=== PATIENT | male | born 1970 | race Caucasian/White ===

== ENCOUNTER 2020-02-24 12:10 | Inpatient (IN) | payer OTHER ==
--- NOTE | 2020-02-24 12:18 | BHS.RME ---
Substance Use & Tx History - Substance Use History Alcohol Substance amount: 1 pint vodka Frequency of use: Daily Substance route: Oral Date of Last Use: 02/24/20 Marijuana/Hashish Substance amount: $10-15 Frequency of use: Daily Substance route: Smoking Date of Last Use: 02/24/20 Nicotine Substance amount: 2 ciggs Frequency of use: Daily Substance route: Smoking Date of Last Use: 02/24/20 - Last Treatment Date of last treatment: 2013 Treatment type: Substance Use Disorder (MILO) Where was last treatment: Detox Physical/Psych/Mental Status - Behavior General Behavior: Increased activity (restlessness, agitation) Eye Contact: Normal - Cooperativeness Cooperativeness: Cooperative - Thinking Thought Processes: Tight, Logical, Goal Directed - Physical Health Problems Is patient presently having any pain?: No Does patient presently have any injuries (include location): No Does patient currently have a fever: No Is patient : No CIWA Nausea/Vomitin-No Nausea/No Vomiting Muscle Tremors: 2 Anxiety: 3 Agitation: 3 Paroxysmal Sweats: 3 Orientation: 0-Oriented Tacttile Disturbances: 1-Very Mild Itch/Numbness Auditory Disturbances: 0-None Visual Disturbances: 0-None Headache: 0-None Present CIWA-Ar Total Score: 12
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
[2020-02-24] MEDS ORDERED: MAGNESIUM CITRATE 300 ML BOTTLE PO PRN (12:58)
[2020-02-24] MEDS ORDERED: IBUPROFEN 400 MG TABLET (FP) PO PRN (12:58)
[2020-02-24] MEDS ORDERED: NICOTINE POLACRILEX 2 MG GUM BUC PRN (12:58)
[2020-02-24] MEDS ORDERED: ONDANSETRON *ODT* 4 MG TABLET SL PRN (12:58)
[2020-02-24] MEDS ORDERED: BISMUTH SUBSALICYLATE 262 MG/15 ML BTL PO PRN (12:58)
[2020-02-24] MEDS ORDERED: MAGNESIUM HYDROX 2400MG/30ML ORAL SUSPENSION 30 ML CUP PO PRN (12:58)
[2020-02-24] MEDS ORDERED: chlordiazePOXIDE HCL 25 MG CAPSULE PO PRN (12:58)
[2020-02-24] MEDS ORDERED: ACETAMINOPHEN 325 MG TABLET (FP) PO PRN ×2 (12:58)
[2020-02-24] MEDS ORDERED: METHOCARBAMOL 500 MG TABLET PO PRN (12:58)
[2020-02-24] MEDS ORDERED: MAG HYDROX/AL HYDROX/SIMETH 30 ML UNIT-DOSE CUP PO PRN (12:58)
[2020-02-24] MEDS ORDERED: MENTHOL/PHENOL 1 EACH UD MM PRN (12:58)
[2020-02-24 15:00] VITALS: BMI 21.1
--- NOTE | 2020-02-24 15:12 | EKG ---
Test Reason : Blood Pressure : / mmHG Vent. Rate : 039 BPM Atrial Rate : 039 BPM P-R Int : 136 ms QRS Dur : 102 ms QT Int : 536 ms P-R-T Axes : 010 062 039 degrees QTc Int : 431 ms MARKED SINUS BRADYCARDIA ABNORMAL ECG NO PREVIOUS ECGS AVAILABLE Confirmed by MD TRACEY, MUSA ([id number]) on 02/24/2020 3:12:12 PM Referred By: Confirmed By:MUSA WEBB MD
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
[2020-02-24] MEDS: hydrOXYzine PAMOATE 25 MG CAPSULE (FP) PO SCH ×3 (15:50→22:21)
[2020-02-24 17:13] LABS: MCH 29.6 pg (25.7-33.7); MCHC 33.3 g/dl (32.0-35.9); MEAN CELL VOLUME 88.8 fl (80-96); PLATELET COUNT 200 K/MM3 (134-434); RBC 4.39 M/mm3 (4.00-5.60); RDW 13.6 % (11.9-15.9); WHITE BLOOD COUNT 6.5 K/mm3 (4.0-10.0)
[2020-02-24 17:19] LABS: ALBUMIN 3.9 g/dl (3.4-5.0); BILIRUBIN,TOTAL 0.8 mg/dL (0.2-1); BLOOD UREA NITROGEN 15.2 mg/dL (7-18); CALCIUM 8.9 mg/dL (8.5-10.1); CREATININE 0.9 mg/dL (0.55-1.3); POTASSIUM 3.9 mmol/L (3.5-5.1); TOT PROT 7.4 g/dl (6.4-8.2)
[2020-02-24] MEDS: chlordiazePOXIDE HCL 25 MG CAPSULE PO SCH ×2 (17:30→22:21)
[2020-02-24] MEDS: MELATONIN 5 MG TABLETS PO SCH (22:21)
[2020-02-24] MEDS: THIAMINE HCL 100 MG TABLET (FP) PO SCH (22:21)
[2020-02-25] MEDS: chlordiazePOXIDE HCL 25 MG CAPSULE PO SCH ×4 (07:34→22:07)
[2020-02-25] MEDS: hydrOXYzine PAMOATE 25 MG CAPSULE (FP) PO SCH ×5 (07:34→22:08)
[2020-02-25] MEDS ORDERED: METHADONE HCL 10 MG TABLET PO ONE (10:00)
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
[2020-02-25] MEDS: PRENATAL VITAMINS W/ FOLIC ACID TABLET (FP) PO SCH (10:14)
[2020-02-25] MEDS: NICOTINE 7 MG/24 HOURS TOPICAL PATCH TD SCH (10:14)
--- NOTE | 2020-02-25 10:35 | PN ---
S CIWA - CIWA Score Nausea/Vomitin Muscle Tremors: 3 Anxiety: 3 Agitation: 2 Paroxysmal Sweats: No Perspiration Orientation: 0-Oriented Tacttile Disturbances: 1-Very Mild Itch/Numbness Auditory Disturbances: 0-None Visual Disturbances: 0-None Headache: 2-Mild CIWA-Ar Total Score: 13 S Progress Note (SOAP) Subjective: alert,irritable,anxious,interrupted sleep,tremor,pain in the body and back,nausea Objective: 02/25/20 10:33 Vital Signs Temperature 97.3 F L 02/25/20 08:56 Pulse Rate 72 02/25/20 08:56 Respiratory Rate 16 02/25/20 08:56 Blood Pressure 110/74 02/25/20 08:56 O2 Sat by Pulse Oximetry (%) 100 02/25/20 06:26 Laboratory Last Values WBC 6.5 K/mm3 (4.0-10.0) 02/24/20 13:15 RBC 4.39 M/mm3 (4.00-5.60) 02/24/20 13:15 Hgb 13.0 GM/dL (11.7-16.9) 02/24/20 13:15 Hct 39.0 % (35.4-49) 02/24/20 13:15 MCV 88.8 fl (80-96) 02/24/20 13:15 MCH 29.6 pg (25.7-33.7) 02/24/20 13:15 MCHC 33.3 g/dl (32.0-35.9) 02/24/20 13:15 RDW 13.6 % (11.9-15.9) 02/24/20 13:15 Plt Count 200 K/MM3 (134-434) 02/24/20 13:15 MPV 9.0 fl (7.5-11.1) 02/24/20 13:15 Sodium 138 mmol/L (136-145) 02/24/20 13:15 Potassium 3.9 mmol/L (3.5-5.1) 02/24/20 13:15 Chloride 102 mmol/L (98-107) 02/24/20 13:15 Carbon Dioxide 29 mmol/L (21-32) 02/24/20 13:15 Anion Gap 7 MMOL/L (8-16) L 02/24/20 13:15 BUN 15.2 mg/dL (7-18) 02/24/20 13:15 Creatinine 0.9 mg/dL (0.55-1.3) 02/24/20 13:15 Est GFR (CKD-EPI)AfAm 115.02 02/24/20 13:15 Est GFR (CKD-EPI)NonAf 99.24 02/24/20 13:15 Random Glucose 91 mg/dL (74-106) 02/24/20 13:15 Calcium 8.9 mg/dL (8.5-10.1) 02/24/20 13:15 Total Bilirubin 0.8 mg/dL (0.2-1) 02/24/20 13:15 AST 45 U/L (15-37) H 02/24/20 13:15 ALT 72 U/L (13-61) H 02/24/20 13:15 Alkaline Phosphatase 85 U/L (45-117) 02/24/20 13:15 Total Protein 7.4 g/dl (6.4-8.2) 02/24/20 13:15 Albumin 3.9 g/dl (3.4-5.0) 02/24/20 13:15 Syphilis Serology Non-reactive (NONREACTIVE) 02/24/20 13:15 Assessment: 02/25/20 10:33 withdrawal symptom Plan: continue detox librium rgimen,methadone maintenance 30 mgs daily
[2020-02-25] MEDS: METHYL SALICYLATE/MENTHOL OINT 30 GM TUBE TP SCH ×2 (14:58→22:08)
[2020-02-25] MEDS: THIAMINE HCL 100 MG TABLET (FP) PO SCH (22:07)
[2020-02-25] MEDS: MELATONIN 5 MG TABLETS PO SCH (22:07)
[2020-02-25] MEDS: QUEtiapine FUMARATE 50 MG TABLET PO SCH (22:07)
[2020-02-26] MEDS: METHADONE HCL 10 MG TABLET PO SCH (06:22)
[2020-02-26] MEDS: chlordiazePOXIDE HCL 25 MG CAPSULE PO SCH ×2 (06:23→10:16)
[2020-02-26] MEDS: hydrOXYzine PAMOATE 25 MG CAPSULE (FP) PO SCH ×5 (06:23→22:29)
--- NOTE | 2020-02-26 10:14 | PN ---
S CIWA - CIWA Score Nausea/Vomitin-Mild Nausea/No Vomiting Muscle Tremors: 2 Anxiety: 2 Agitation: 2 Paroxysmal Sweats: No Perspiration Orientation: 0-Oriented Tacttile Disturbances: 1-Very Mild Itch/Numbness Auditory Disturbances: 0-None Visual Disturbances: 0-None Headache: 1-Very Mild CIWA-Ar Total Score: 9 BHS Progress Note (SOAP) Subjective: alert,irritable,anxious,interrupted sleep,tremor,low back pain,aching pain in the body Objective: 02/26/20 10:13 Vital Signs Temperature 97.3 F L 02/26/20 08:42 Pulse Rate 53 L 02/26/20 08:42 Respiratory Rate 18 02/26/20 08:42 Blood Pressure 104/59 L 02/26/20 08:42 O2 Sat by Pulse Oximetry (%) 97 02/26/20 06:26 Assessment: 02/26/20 10:13 withdrawal symptom Plan: continue detox librium regimen,continue mmtp 30 mgs/day maintenance
[2020-02-26] MEDS: METHYL SALICYLATE/MENTHOL OINT 30 GM TUBE TP SCH ×2 (10:16→22:28)
[2020-02-26] MEDS: NICOTINE 7 MG/24 HOURS TOPICAL PATCH TD SCH (10:16)
[2020-02-26] MEDS: PRENATAL VITAMINS W/ FOLIC ACID TABLET (FP) PO SCH (10:16)
[2020-02-26] MEDS ORDERED: LORazepam 1 MG TABLET PO PRN (14:05)
--- NOTE | 2020-02-26 14:10 | PN ---
BHS Progress Note Note: patient would like regimen to be changed from librium to ativan
[2020-02-26] MEDS: LORazepam 2 MG TABLET PO SCH ×2 (17:17→22:27)
[2020-02-26] MEDS: THIAMINE HCL 100 MG TABLET (FP) PO SCH (22:27)
[2020-02-26] MEDS: QUEtiapine FUMARATE 50 MG TABLET PO SCH (22:27)
[2020-02-26] MEDS: MELATONIN 5 MG TABLETS PO SCH (22:28)
[2020-02-27] MEDS ORDERED: chlordiazePOXIDE HCL 10 MG CAPSULE PO PRN
[2020-02-27] MEDS ORDERED: chlordiazePOXIDE HCL 10 MG CAPSULE PO SCH (05:00)
--- NOTE | 2020-02-27 07:43 | PN ---
[facility] Progress Note Note: Patient is very confused as per the nurse, he was walking around the unit in his underwear andbwas going into other patient's room looking for washing machine because he had to get to work. Vital Signs Temperature 97.3 F L 02/27/20 06:49 Pulse Rate 62 02/27/20 06:49 Respiratory Rate 18 02/27/20 06:49 Blood Pressure 101/57 L 02/27/20 06:49 O2 Sat by Pulse Oximetry (%) 98 02/27/20 06:49 Laboratory Last Values WBC 6.5 K/mm3 (4.0-10.0) 02/24/20 13:15 RBC 4.39 M/mm3 (4.00-5.60) 02/24/20 13:15 Hgb 13.0 GM/dL (11.7-16.9) 02/24/20 13:15 Hct 39.0 % (35.4-49) 02/24/20 13:15 MCV 88.8 fl (80-96) 02/24/20 13:15 MCH 29.6 pg (25.7-33.7) 02/24/20 13:15 MCHC 33.3 g/dl (32.0-35.9) 02/24/20 13:15 RDW 13.6 % (11.9-15.9) 02/24/20 13:15 Plt Count 200 K/MM3 (134-434) 02/24/20 13:15 MPV 9.0 fl (7.5-11.1) 02/24/20 13:15 Sodium 138 mmol/L (136-145) 02/24/20 13:15 Potassium 3.9 mmol/L (3.5-5.1) 02/24/20 13:15 Chloride 102 mmol/L (98-107) 02/24/20 13:15 Carbon Dioxide 29 mmol/L (21-32) 02/24/20 13:15 Anion Gap 7 MMOL/L (8-16) L 02/24/20 13:15 BUN 15.2 mg/dL (7-18) 02/24/20 13:15 Creatinine 0.9 mg/dL (0.55-1.3) 02/24/20 13:15 Est GFR (CKD-EPI)AfAm 115.02 02/24/20 13:15 Est GFR (CKD-EPI)NonAf 99.24 02/24/20 13:15 Random Glucose 91 mg/dL (74-106) 02/24/20 13:15 Calcium 8.9 mg/dL (8.5-10.1) 02/24/20 13:15 Total Bilirubin 0.8 mg/dL (0.2-1) 02/24/20 13:15 AST 45 U/L (15-37) H 02/24/20 13:15 ALT 72 U/L (13-61) H 02/24/20 13:15 Alkaline Phosphatase 85 U/L (45-117) 02/24/20 13:15 Total Protein 7.4 g/dl (6.4-8.2) 02/24/20 13:15 Albumin 3.9 g/dl (3.4-5.0) 02/24/20 13:15 Syphilis Serology Non-reactive (NONREACTIVE) 02/24/20 13:15 COVID-19 (NAYE) Not detected (Not Detected) 02/24/20 15:30 Action: Maintain safety and fall precaution Ammonia level ordered
[2020-02-27] MEDS: METHADONE HCL 10 MG TABLET PO SCH (07:56)
[2020-02-27] MEDS: hydrOXYzine PAMOATE 25 MG CAPSULE (FP) PO SCH ×4 (07:57→17:17)
[2020-02-27] MEDS: LORazepam 2 MG TABLET PO SCH ×3 (07:57→17:16)
[2020-02-27 09:14] VITALS: TEMP 97.1
[2020-02-27] MEDS: NICOTINE 7 MG/24 HOURS TOPICAL PATCH TD SCH (11:12)
[2020-02-27] MEDS: METHYL SALICYLATE/MENTHOL OINT 30 GM TUBE TP SCH (11:12)
[2020-02-27] MEDS: PRENATAL VITAMINS W/ FOLIC ACID TABLET (FP) PO SCH (11:12)
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
--- NOTE | 2020-02-27 18:54 | PN ---
[facility] Progress Note Note: patient is medically clear to return to [facility] for continuation of detox alert,oriented x 3 lung clear bilaterally on auscultation abdomen soft,no distension,no pain,no tenderness, ammonia level is 39.70 ambulation without difficulty treatment continue detox ativan regimen close monitoring repeat ammonia level in am
[2020-02-27 19:36] VITALS: BP 137/73; PULSE 53
--- NOTE | 2020-02-27 20:50 | DS ---
[facility] Detox Discharge Summary Admission Date: 02/24/20 Discharge Date: 02/27/20 - History Additional Comments: Patient is leaving against medical advice. Patient was transferred to [facility] ER for altered mental status and high ammonium level. He was hydrated and treated with lactulose and rifaximin. He was to continue Rifaximin 550mg two times a day for up to 5 days and stop when your ammonia level normalizes. Patient reports that he feels better and does not want to continue with detox. He is alert and oriented x 3, in no acute distress, ambulates independently and vital sign within his usual norm. Patient signed the AMA and left. He does not remember his pharmacy and states that he does not fill his prescription at [facility] anymore. He was instructed to follow up with primary care physician to continue with rifaximin and he reports that his family will pick him up. Pertinent Past History: Alcohol dependence Opioid dependence Sedative dependence Altered mental status Head injury Mood disorder Methadone maintenance therapy patient - Physical Exam Results Vital Signs: Vital Signs Temperature 97.1 F L 02/27/20 19:27 Pulse Rate 53 L 02/27/20 19:27 Respiratory Rate 18 02/27/20 19:27 Blood Pressure 137/73 02/27/20 19:27 O2 Sat by Pulse Oximetry (%) 100 02/27/20 19:27 Laboratory Last Values WBC 6.5 K/mm3 (4.0-10.0) 02/24/20 13:15 RBC 4.39 M/mm3 (4.00-5.60) 02/24/20 13:15 Hgb 13.0 GM/dL (11.7-16.9) 02/24/20 13:15 Hct 39.0 % (35.4-49) 02/24/20 13:15 MCV 88.8 fl (80-96) 02/24/20 13:15 MCH 29.6 pg (25.7-33.7) 02/24/20 13:15 MCHC 33.3 g/dl (32.0-35.9) 02/24/20 13:15 RDW 13.6 % (11.9-15.9) 02/24/20 13:15 Plt Count 200 K/MM3 (134-434) 02/24/20 13:15 MPV 9.0 fl (7.5-11.1) 02/24/20 13:15 Sodium 138 mmol/L (136-145) 02/24/20 13:15 Potassium 3.9 mmol/L (3.5-5.1) 02/24/20 13:15 Chloride 102 mmol/L (98-107) 02/24/20 13:15 Carbon Dioxide 29 mmol/L (21-32) 02/24/20 13:15 Anion Gap 7 MMOL/L (8-16) L 02/24/20 13:15 BUN 15.2 mg/dL (7-18) 02/24/20 13:15 Creatinine 0.9 mg/dL (0.55-1.3) 02/24/20 13:15 Est GFR (CKD-EPI)AfAm 115.02 02/24/20 13:15 Est GFR (CKD-EPI)NonAf 99.24 02/24/20 13:15 Random Glucose 91 mg/dL (74-106) 02/24/20 13:15 Calcium 8.9 mg/dL (8.5-10.1) 02/24/20 13:15 Total Bilirubin 0.8 mg/dL (0.2-1) 02/24/20 13:15 AST 45 U/L (15-37) H 02/24/20 13:15 ALT 72 U/L (13-61) H 02/24/20 13:15 Alkaline Phosphatase 85 U/L (45-117) 02/24/20 13:15 Ammonia 101.00 umol/L (11-32) H 02/27/20 08:10 Total Protein 7.4 g/dl (6.4-8.2) 02/24/20 13:15 Albumin 3.9 g/dl (3.4-5.0) 02/24/20 13:15 Syphilis Serology Non-reactive (NONREACTIVE) 02/24/20 13:15 COVID-19 (NAYE) Not detected (Not Detected) 02/24/20 15:30 Labs reviewed with patient Pertinent Admission Physical Exam Findings: Alcohol withdrawal symptoms - Medication Discharge Medications: Ambulatory Orders Sertraline HCl [Zoloft -] 100 mg PO DAILY 02/24/20 - Diagnosis (1) Cannabis dependence Status: Chronic (2) Sedative dependence Status: Chronic (3) hepatitis b Status: Chronic (4) AMS (altered mental status) Status: Chronic Qualifiers: Altered mental status type: unspecified Qualified Code(s): R41.82 - Altered mental status, unspecified (5) Alcohol dependence Status: Chronic (6) Head injury Status: Chronic (7) Hyperammonemia Status: Chronic (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
[2020-02-28] MEDS ORDERED: LORazepam 1 MG TABLET PO SCH (05:00)
[2020-02-28] MEDS ORDERED: chlordiazePOXIDE HCL 10 MG CAPSULE PO SCH (05:00)
[2020-02-29] MEDS ORDERED: LORazepam 0.5 MG TABLET PO PRN
[2020-02-29] MEDS ORDERED: chlordiazePOXIDE HCL 10 MG CAPSULE PO ONE (05:00)
[2020-02-29] MEDS ORDERED: LORazepam 0.5 MG TABLET PO SCH (05:00)
[2020-03-01] MEDS ORDERED: LORazepam 0.5 MG TABLET PO ONE (05:00)
== END 2020-02-27 20:50 | disposition left against medical advice (07) | DRG 770 ==
LOC: YASAS 12:10 → Y3N 14:29
PROVIDERS: ADMIT Allergy & Immunology; ATTEND Allergy & Immunology
PROC: HZ2ZZZZ Detoxification Services for Substance Abuse Treatment (ICD-10-PCS; principal; 2020-02-24)
DX: F10.230 Alcohol dependence with withdrawal, uncomplicated (principal); F11.20 Opioid dependence, uncomplicated; F12.20 Cannabis dependence, uncomplicated; F17.210 Nicotine dependence, cigarettes, uncomplicated; F39 Unspecified mood [affective] disorder; E72.20 Disorder of urea cycle metabolism, unspecified; R41.82 Altered mental status, unspecified; B18.1 Chronic viral hepatitis B without delta-agent; Z91.013 Allergy to seafood; Z91.018 Allergy to other foods; Z91.5 Personal history of self-harm
CPT/HCPCS: 36415; 80053; 82140; 85027; 86780; 93005; 93010; U0003

== ENCOUNTER 2020-02-27 14:47 | Emergency (ER) | payer OTHER ==
[2020-02-27 15:12] VITALS: BMI 23.3
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
[2020-02-27] MEDS ORDERED: LACTULOSE 20 GM/30 ML UDC (FOR ORAL USE ONLY) PO ONE (16:02)
[2020-02-27] MEDS ORDERED: SODIUM CHLORIDE 0.9% 500 ML INFUS.BAG IV ONE (16:02)
[2020-02-27] MEDS ORDERED: RIFAXIMIN 550 MG TABLET (UD) PO ONE (16:04)
[2020-02-27 16:13] LABS: BASO % 0.4 % (0-2.0); EOS % 7.1 % (0-4.5); HEMATOCRIT 40.9 % (35.4-49); HEMOGLOBIN 13.6 GM/dL (11.7-16.9); LYMPH % 31.2 % (8-40); MCH 29.4 pg (25.7-33.7); MCHC 33.2 g/dl (32.0-35.9); MEAN CELL VOLUME 88.5 fl (80-96); MEAN PLT VOLUME 8.5 fl (7.5-11.1); MONO % 11.1 % (3.8-10.2); NEUT % 50.2 % (42.8-82.8); PLATELET COUNT 179 K/MM3 (134-434); RBC 4.63 M/mm3 (4.00-5.60); RDW 13.7 % (11.9-15.9)
[2020-02-27] MEDS ORDERED: LACTULOSE 20 GM/30 ML UDC (FOR ORAL USE ONLY) ONE (16:19)
[2020-02-27 16:26] LABS: INR 0.96 (0.83-1.09); PROTHROMBIN TIME (PATIENT) 11.3 SEC (9.7-13.0)
[2020-02-27 16:28] LABS: ACTIVATED PTT 34.6 SECONDS (25.2-36.5)
[2020-02-27 16:39] LABS: ALBUMIN 3.2 g/dl (3.4-5.0); ALK PHOS 97 U/L (45-117); ANION GAP 2 MMOL/L (8-16); BILIRUBIN,TOTAL 0.2 mg/dL (0.2-1); BLOOD UREA NITROGEN 12.2 mg/dL (7-18); CALCIUM 9.1 mg/dL (8.5-10.1); CHLORIDE 106 mmol/L (98-107); CO2 32 mmol/L (21-32); CREATININE 0.8 mg/dL (0.55-1.3); GLUCOSE,RANDOM 94 mg/dL (74-106); LIPASE 73 U/L (73-393); MAGNESIUM 2.2 mg/dL (1.8-2.4); PHOSPHOROUS 2.9 mg/dL (2.5-4.9); POTASSIUM 4.1 mmol/L (3.5-5.1); SGOT/AST 67 U/L (15-37); SGPT/ALT 95 U/L (13-61); SODIUM 141 mmol/L (136-145); TOT PROT 6.6 g/dl (6.4-8.2)
--- NOTE | 2020-02-27 17:34 | PDOC ---
Documentation entered by Malu Mejia SCRIBE, acting as scribe for Anil Medley MD. Anil Medley MD: This documentation has been prepared by the Jackie berry Brenda, SCRIBE, under my direction and personally reviewed by me in its entirety. I confirm that the documentation accurately reflects all work, treatment, procedures, and medical decision making performed by me. Attending Attestation - Resident Resident Name: Daphnie Green - ED Attending Attestation I have performed the following: I have examined & evaluated the patient, The case was reviewed & discussed with the resident, I agree w/resident's findings & plan, Exceptions are as noted - HPI HPI: 02/27/20 15:39 The patient is a 49 year old male with a significant PMH of alcohol abuse and hepatitis B who presents to the emergency department BIBA sent from [facility] for evaluation of elevated ammonium at 101 and altered mental status. Patient endorses shortness of breath, noting he can't walk more than 2 minutes without stopping and left sided chest pressure upon exertion. He's also endorsing a recent fall s/p head injury complaining of headache. Patient also reports nausea with associated intermittent abdominal pain. The patient denies and dizziness. Denies fever, chills, vomiting, diarrhea and constipation. Denies dysuria, frequency, urgency and hematuria. Social history: alcohol use and illicit drug use PCP: Bhaskar Prajapati - Physicial Exam PE: 02/27/20 15:44 Vitals: Triage Vital signs reviewed General Appearance: no acute distress, well nourished well developed, Neck: Supple;No Nuchal rigidity Chest Wall: Nontender Cardiac: Regular rate and rhythm, no murmurs, no rubs, no gallops, Lungs: Clear to auscultation bilateral, good air movement bilaterally, Abdomen: Soft, nondistended, normal bowel sounds, nontender to palpation Extremities: Full range of motion to all extremities, no cyanosis, clubbing, or edema Skin: Warm and dry, no rashes or lesions, no petechiae Neuro: AOX3; Cranial Nerves 2-12 grossly intact, Strength intact to all extremities, Sensation intact to all extremities Psych: normal mood, normal affect - Medical Decision Making 02/27/20 18:01 49 years old with past medical history significant for alcohol abuse hepatitis sent from [facility] for elevated ammonia altered mental status repeat ammonia now 39 patient mentating much better was given lactulose and rifaxamin in the ED labs and head CT otherwise within normal limits at this time patient able to ambulate with steady gait Given marked improvement over just a few hours Case discussed with [facility] stable for transfer back will recommend additional 2-day course of lactulose and rifaxamin Findings, need for follow-up and strict return instructions discussed with patient. 02/27/20 18:02 03/01/20 11:05 Discharge - Discharge Information Problems reviewed: Yes Clinical Impression/Diagnosis: Hyperammonemia AMS (altered mental status) Qualifiers: Altered mental status type: unspecified Qualified Code(s): R41.82 - Altered mental status, unspecified Condition: Improved Disposition: HOME - Follow up/Referral Referrals: Bhaskar Prajapati [Primary Care Provider] - - Patient Discharge Instructions Patient Printed Discharge Instructions: DI for Hepatic Encephalopathy Additional Instructions: You have been seen for your confusion and high ammonium. Your ammonium level was lower here and we gave you the initial treatments of lactulose, rifaximin, and fluids. Your confusion improved and you are safe to go home. Take Rifaximin 550mg two times a day for up to 5 days, stop when your ammonia level normalizes. Follow up with your primary care doctor within 3 days. Follow your program recommendations. Return to the Emergency Department immediately for any new or concerning symptoms including confusion, vomiting, abdominal pain, or fever. - Post Discharge Activity
[2020-02-27 18:16] VITALS: BP 125/63; PULSE 54; TEMP 97.4
--- NOTE | 2020-02-29 10:07 | EKG ---
Test Reason : Blood Pressure : / mmHG Vent. Rate : 049 BPM Atrial Rate : 049 BPM P-R Int : 130 ms QRS Dur : 098 ms QT Int : 434 ms P-R-T Axes : 012 006 007 degrees QTc Int : 392 ms SINUS BRADYCARDIA Nonspecific T changes OTHERWISE NORMAL ECG WHEN COMPARED WITH ECG OF 24-FEB-2020 12:56, INVERTED T WAVES HAVE REPLACED NONSPECIFIC T WAVE ABNORMALITY IN INFERIOR LEADS T WAVE AMPLITUDE HAS DECREASED IN ANTERIOR LEADS Confirmed by Trudy Michelle ([id number]) on 02/29/2020 10:07:34 AM Referred By: Confirmed By:Trudy Michelle
[2020-02-29 19:06] LABS: HEP B CORE AB, TOT Positive (Negative)
== END 2020-02-27 18:36 | disposition home or self-care (01) ==
LOC: JER 14:47
DX: E72.20 Disorder of urea cycle metabolism, unspecified (principal); R41.82 Altered mental status, unspecified
CPT/HCPCS: 36415; 70450-TC; 71045-TC-FY; 80053; 82140; 82550; 82553; 82962; 83690; 83735; 84100; 84484; 85025; 85610; 85730; 86704; 86706; 86707; 86708; 86709; 86850; 86900; 86901; 87340; 93005; 93010; 99285-25

== ENCOUNTER 2021-05-29 10:20 | Inpatient (IN) | payer OTHER ==
[2021-05-29 11:10] VITALS: BMI 21.6
[2021-05-29] MEDS ORDERED: IBUPROFEN 400 MG TABLET (FP) PO PRN (13:04)
[2021-05-29] MEDS ORDERED: METHOCARBAMOL 500 MG TABLET PO PRN (13:04)
[2021-05-29] MEDS ORDERED: MAG HYDROX/AL HYDROX/SIMETH 30 ML UNIT-DOSE CUP PO PRN (13:04)
[2021-05-29] MEDS ORDERED: ONDANSETRON *ODT* 4 MG TABLET SL PRN (13:04)
[2021-05-29] MEDS ORDERED: NICOTINE 10 MG CARTRIDGE (INHALER) IH PRN (13:04)
[2021-05-29] MEDS ORDERED: MENTHOL/PHENOL 1 EACH UD MM PRN (13:04)
[2021-05-29] MEDS ORDERED: MAGNESIUM HYDROX 2400MG/30ML ORAL SUSPENSION 30 ML CUP PO PRN (13:04)
[2021-05-29] MEDS ORDERED: ACETAMINOPHEN 325 MG TABLET (FP) PO PRN ×2 (13:04)
[2021-05-29] MEDS ORDERED: BISMUTH SUBSALICYLATE 524 MG/30 ML PO PRN (13:04)
[2021-05-29] MEDS ORDERED: MAGNESIUM CITRATE 300 ML BOTTLE PO PRN (13:04)
[2021-05-29] MEDS: NICOTINE 14 MG/24 HOURS TOPICAL PATCH TD SCH (14:46)
[2021-05-29] MEDS: hydrOXYzine PAMOATE 25 MG CAPSULE (FP) PO SCH ×3 (14:46→21:53)
[2021-05-29] MEDS: PRENATAL VITAMINS W/ FOLIC ACID TABLET (FP) PO SCH (14:46)
[2021-05-29 15:02] LABS: HEMATOCRIT 40.4 % (35.4-49); HEMOGLOBIN 13.9 GM/dL (11.7-16.9); MCH 29.8 pg (25.7-33.7); MCHC 34.3 g/dl (32.0-35.9); MEAN CELL VOLUME 86.8 fl (80-96); MEAN PLT VOLUME 8.1 fl (7.5-11.1); PLATELET COUNT 187 10^3/uL (134-434); RBC 4.66 M/mm3 (4.00-5.60); RDW 13.4 % (11.9-15.9); WHITE BLOOD COUNT 6.2 K/mm3 (4.0-10.0)
[2021-05-29 15:35] LABS: CREATININE 0.8 mg/dL (0.55-1.3)
[2021-05-29 15:36] LABS: BILIRUBIN,TOTAL 0.3 mg/dL (0.2-1)
[2021-05-29 15:37] LABS: BLOOD UREA NITROGEN 14.3 mg/dL (7-18); TOT PROT 7.3 g/dl (6.4-8.2)
[2021-05-29 15:38] LABS: ALBUMIN 3.7 g/dl (3.4-5.0)
[2021-05-29 15:39] LABS: CALCIUM 8.7 mg/dL (8.5-10.1)
[2021-05-29] MEDS: diazePAM 5 MG TABLET PO SCH ×2 (17:42→22:11)
[2021-05-29] MEDS: MELATONIN 5 MG TABLETS PO SCH (21:53)
[2021-05-29] MEDS: THIAMINE HCL 100 MG TABLET (FP) PO SCH (21:53)
[2021-05-30] MEDS: diazePAM 5 MG TABLET PO SCH ×4 (05:30→22:26)
[2021-05-30] MEDS: hydrOXYzine PAMOATE 25 MG CAPSULE (FP) PO SCH ×5 (05:30→22:26)
[2021-05-30] MEDS: PRENATAL VITAMINS W/ FOLIC ACID TABLET (FP) PO SCH (10:08)
[2021-05-30] MEDS: NICOTINE 14 MG/24 HOURS TOPICAL PATCH TD SCH (10:08)
[2021-05-30] MEDS ORDERED: methaDONE HCL 10 MG TABLET PO SCH (11:30)
[2021-05-30] MEDS ORDERED: methaDONE HCL 40 MG DISPERSABLE TABLET ONE (12:57)
[2021-05-30] MEDS ORDERED: methaDONE HCL 10 MG TABLET ONE (12:57)
[2021-05-30] MEDS: methaDONE 40 MG, methaDONE 20 MG PO SCH (13:01)
[2021-05-30] MEDS: THIAMINE HCL 100 MG TABLET (FP) PO SCH (22:26)
[2021-05-30] MEDS: MELATONIN 5 MG TABLETS PO SCH (22:42)
[2021-05-31] MEDS ORDERED: methaDONE HCL 10 MG TABLET ONE (04:29)
[2021-05-31] MEDS ORDERED: methaDONE HCL 40 MG DISPERSABLE TABLET ONE (04:29)
[2021-05-31] MEDS: methaDONE 40 MG, methaDONE 20 MG PO SCH (05:46)
[2021-05-31] MEDS: hydrOXYzine PAMOATE 25 MG CAPSULE (FP) PO SCH ×5 (05:47→23:03)
[2021-05-31] MEDS: diazePAM 5 MG TABLET PO SCH ×3 (05:47→23:03)
[2021-05-31 10:19] LABS: CALCIUM 8.9 mg/dL (8.5-10.1)
[2021-05-31 10:20] LABS: ALBUMIN 3.4 g/dl (3.4-5.0); BLOOD UREA NITROGEN 14.7 mg/dL (7-18)
[2021-05-31 10:23] LABS: CREATININE 0.7 mg/dL (0.55-1.3)
[2021-05-31 10:25] LABS: BILIRUBIN,TOTAL 0.2 mg/dL (0.2-1); TOT PROT 6.9 g/dl (6.4-8.2)
[2021-05-31] MEDS: diazePAM 5 MG TABLET PO PRN (10:43)
[2021-05-31] MEDS: NICOTINE 14 MG/24 HOURS TOPICAL PATCH TD SCH (10:45)
[2021-05-31] MEDS: PRENATAL VITAMINS W/ FOLIC ACID TABLET (FP) PO SCH (10:45)
[2021-05-31] MEDS: MELATONIN 5 MG TABLETS PO SCH (23:03)
[2021-05-31] MEDS: THIAMINE HCL 100 MG TABLET (FP) PO SCH (23:03)
[2021-06-01] MEDS ORDERED: methaDONE HCL 10 MG TABLET ONE (04:41)
[2021-06-01] MEDS ORDERED: methaDONE HCL 40 MG DISPERSABLE TABLET ONE (04:42)
[2021-06-01] MEDS: hydrOXYzine PAMOATE 25 MG CAPSULE (FP) PO SCH ×5 (05:33→22:05)
[2021-06-01] MEDS: methaDONE 40 MG, methaDONE 20 MG PO SCH (05:33)
[2021-06-01] MEDS: diazePAM 5 MG TABLET PO SCH ×2 (05:34→17:53)
[2021-06-01] MEDS: NICOTINE 14 MG/24 HOURS TOPICAL PATCH TD SCH (10:43)
[2021-06-01] MEDS: PRENATAL VITAMINS W/ FOLIC ACID TABLET (FP) PO SCH (10:43)
[2021-06-01] MEDS: diazePAM 5 MG TABLET PO PRN (10:44)
[2021-06-01 21:39] VITALS: TEMP 96.9
[2021-06-01] MEDS: MELATONIN 5 MG TABLETS PO SCH (22:05)
[2021-06-01] MEDS: THIAMINE HCL 100 MG TABLET (FP) PO SCH (22:05)
[2021-06-02] MEDS ORDERED: methaDONE HCL 40 MG DISPERSABLE TABLET ONE (04:28)
[2021-06-02] MEDS ORDERED: methaDONE HCL 10 MG TABLET ONE (04:28)
[2021-06-02] MEDS ORDERED: diazePAM 5 MG TABLET PO ONE (06:00)
[2021-06-02] MEDS: hydrOXYzine PAMOATE 25 MG CAPSULE (FP) PO SCH ×3 (06:51→10:10)
[2021-06-02] MEDS: methaDONE 40 MG, methaDONE 20 MG PO SCH (06:52)
[2021-06-02 09:01] VITALS: BP 96/61; PULSE 60
[2021-06-02] MEDS: PRENATAL VITAMINS W/ FOLIC ACID TABLET (FP) PO SCH (10:10)
[2021-06-02] MEDS: NICOTINE 14 MG/24 HOURS TOPICAL PATCH TD SCH (10:10)
== END 2021-06-02 11:45 | disposition other institution (70) | DRG 773 ==
LOC: YASAS 10:20 → Y3N 13:18
PROVIDERS: ADMIT Allergy & Immunology; ATTEND Allergy & Immunology
PROC: HZ2ZZZZ Detoxification Services for Substance Abuse Treatment (ICD-10-PCS; principal; 2021-05-29)
DX: F10.230 Alcohol dependence with withdrawal, uncomplicated (principal); F11.20 Opioid dependence, uncomplicated; F13.20 Sedative, hypnotic or anxiolytic dependence, uncomplicated; F12.20 Cannabis dependence, uncomplicated; F17.210 Nicotine dependence, cigarettes, uncomplicated; F31.9 Bipolar disorder, unspecified; F19.24 Other psychoactive substance dependence with psychoactive substance-induced mood disorder; B18.2 Chronic viral hepatitis C; Z91.14 Patient's other noncompliance with medication regimen; Z91.013 Allergy to seafood; Z91.018 Allergy to other foods
CPT/HCPCS: 36415; 80053; 82947; 85027; 86780; C9803; U0003; U0005

== ENCOUNTER 2021-06-02 11:41 | Inpatient (IN) | payer OTHER ==
[2021-06-02] MEDS ORDERED: MENTHOL/PHENOL 1 EACH UD MM PRN (15:24)
[2021-06-02] MEDS ORDERED: IBUPROFEN 400 MG TABLET (FP) PO PRN (15:24)
[2021-06-02] MEDS ORDERED: MAG HYDROX/AL HYDROX/SIMETH 30 ML UNIT-DOSE CUP PO PRN (15:24)
[2021-06-02] MEDS ORDERED: LOPERAMIDE HCL 2 MG CAPSULE PO PRN (15:24)
[2021-06-02] MEDS ORDERED: hydrOXYzine PAMOATE 25 MG CAPSULE (FP) PO PRN (15:24)
[2021-06-02] MEDS ORDERED: guaiFENesin 200 MG/10 ML 10 ML UNIT-DOSE CUPS PO PRN (15:24)
[2021-06-02] MEDS ORDERED: ACETAMINOPHEN 325 MG TABLET (FP) PO PRN (15:24)
[2021-06-02] MEDS ORDERED: MAGNESIUM HYDROX 2400MG/30ML ORAL SUSPENSION 30 ML CUP PO PRN (15:24)
[2021-06-02] MEDS ORDERED: P-EPHED 60MG/TRIPROLIDI 2.5MG TABLET PO PRN (15:24)
[2021-06-02] MEDS ORDERED: MAGNESIUM CITRATE 300 ML BOTTLE PO PRN (15:24)
[2021-06-02] MEDS: THIAMINE HCL 100 MG TABLET (FP) PO SCH (21:27)
[2021-06-02] MEDS: MELATONIN 5 MG TABLETS PO SCH (21:28)
[2021-06-03] MEDS ORDERED: PT OWN MED DRAWER 7, Y5N ONE ×2 (00:02→09:00)
[2021-06-03] MEDS: methaDONE 40 MG, methaDONE 20 MG PO SCH (06:27)
[2021-06-03] MEDS ORDERED: methaDONE HCL 40 MG DISPERSABLE TABLET ONE (06:27)
[2021-06-03] MEDS ORDERED: methaDONE HCL 10 MG TABLET ONE (06:27)
[2021-06-03] MEDS: NICOTINE 7 MG/24 HOURS TOPICAL PATCH TD SCH (09:36)
[2021-06-03] MEDS: PRENATAL VITAMINS W/ FOLIC ACID TABLET (FP) PO SCH (09:36)
[2021-06-03] MEDS: ARIPiprazole 2 MG TABLET PO SCH (09:36)
[2021-06-03] MEDS: NICOTINE 10 MG CARTRIDGE (INHALER) IH PRN (09:38)
[2021-06-03] MEDS: MELATONIN 5 MG TABLETS PO SCH (21:17)
[2021-06-03] MEDS: THIAMINE HCL 100 MG TABLET (FP) PO SCH (21:17)
[2021-06-04] MEDS ORDERED: methaDONE HCL 10 MG TABLET ONE (04:02)
[2021-06-04] MEDS ORDERED: methaDONE HCL 40 MG DISPERSABLE TABLET ONE (04:02)
[2021-06-04] MEDS: methaDONE 40 MG, methaDONE 20 MG PO SCH (07:26)
[2021-06-04] MEDS: PRENATAL VITAMINS W/ FOLIC ACID TABLET (FP) PO SCH (09:59)
[2021-06-04] MEDS: ARIPiprazole 2 MG TABLET PO SCH (09:59)
[2021-06-04] MEDS: NICOTINE 7 MG/24 HOURS TOPICAL PATCH TD SCH (10:00)
[2021-06-04] MEDS: MELATONIN 5 MG TABLETS PO SCH (21:47)
[2021-06-04] MEDS: THIAMINE HCL 100 MG TABLET (FP) PO SCH (21:48)
[2021-06-05] MEDS ORDERED: methaDONE HCL 40 MG DISPERSABLE TABLET ONE (03:52)
[2021-06-05] MEDS ORDERED: methaDONE HCL 10 MG TABLET ONE (03:52)
[2021-06-05] MEDS: methaDONE 40 MG, methaDONE 20 MG PO SCH (06:19)
[2021-06-05] MEDS ORDERED: PT OWN MED DRAWER 7, Y5N ONE (08:12)
[2021-06-05] MEDS: PRENATAL VITAMINS W/ FOLIC ACID TABLET (FP) PO SCH (09:08)
[2021-06-05] MEDS: ARIPiprazole 2 MG TABLET PO SCH (09:08)
[2021-06-05] MEDS: NICOTINE 7 MG/24 HOURS TOPICAL PATCH TD SCH (09:08)
[2021-06-05] MEDS: NICOTINE 10 MG CARTRIDGE (INHALER) IH PRN (09:09)
[2021-06-05 12:36] LABS: HIV INTERPRETATION NEGATIVE (NEGATIVE)
[2021-06-05] MEDS: MELATONIN 5 MG TABLETS PO SCH (21:38)
[2021-06-05] MEDS: THIAMINE HCL 100 MG TABLET (FP) PO SCH (21:38)
[2021-06-06] MEDS ORDERED: methaDONE HCL 40 MG DISPERSABLE TABLET ONE (03:38)
[2021-06-06] MEDS ORDERED: methaDONE HCL 10 MG TABLET ONE (03:38)
[2021-06-06] MEDS: methaDONE 40 MG, methaDONE 20 MG PO SCH (06:14)
[2021-06-06] MEDS ORDERED: PT OWN MED DRAWER 7, Y5N ONE (08:39)
[2021-06-06] MEDS: PRENATAL VITAMINS W/ FOLIC ACID TABLET (FP) PO SCH (09:40)
[2021-06-06] MEDS: NICOTINE 7 MG/24 HOURS TOPICAL PATCH TD SCH (09:40)
[2021-06-06] MEDS: ARIPiprazole 2 MG TABLET PO SCH (10:03)
[2021-06-06] MEDS: THIAMINE HCL 100 MG TABLET (FP) PO SCH (21:31)
[2021-06-06] MEDS: MELATONIN 5 MG TABLETS PO SCH (21:31)
[2021-06-07] MEDS ORDERED: methaDONE HCL 40 MG DISPERSABLE TABLET ONE (03:22)
[2021-06-07] MEDS ORDERED: methaDONE HCL 10 MG TABLET ONE (03:22)
[2021-06-07] MEDS: methaDONE 40 MG, methaDONE 20 MG PO SCH (06:38)
[2021-06-07] MEDS: NICOTINE 7 MG/24 HOURS TOPICAL PATCH TD SCH (09:28)
[2021-06-07] MEDS: NICOTINE 10 MG CARTRIDGE (INHALER) IH PRN (09:28)
[2021-06-07] MEDS: PRENATAL VITAMINS W/ FOLIC ACID TABLET (FP) PO SCH (09:28)
[2021-06-07] MEDS: ARIPiprazole 2 MG TABLET PO SCH (09:28)
[2021-06-07] MEDS: MELATONIN 5 MG TABLETS PO SCH (21:49)
[2021-06-07] MEDS: THIAMINE HCL 100 MG TABLET (FP) PO SCH (21:49)
[2021-06-08] MEDS ORDERED: methaDONE HCL 10 MG TABLET ONE (04:05)
[2021-06-08] MEDS ORDERED: methaDONE HCL 40 MG DISPERSABLE TABLET ONE (04:06)
[2021-06-08] MEDS: methaDONE 40 MG, methaDONE 20 MG PO SCH (06:54)
[2021-06-08] MEDS: PRENATAL VITAMINS W/ FOLIC ACID TABLET (FP) PO SCH (09:37)
[2021-06-08] MEDS: ARIPiprazole 2 MG TABLET PO SCH (09:37)
[2021-06-08] MEDS: NICOTINE 7 MG/24 HOURS TOPICAL PATCH TD SCH (09:38)
[2021-06-08] MEDS: THIAMINE HCL 100 MG TABLET (FP) PO SCH (21:27)
[2021-06-08] MEDS: MELATONIN 5 MG TABLETS PO SCH (21:27)
[2021-06-09] MEDS ORDERED: methaDONE HCL 10 MG TABLET ONE (03:26)
[2021-06-09] MEDS ORDERED: methaDONE HCL 40 MG DISPERSABLE TABLET ONE (03:27)
[2021-06-09] MEDS: methaDONE 40 MG, methaDONE 20 MG PO SCH (06:45)
[2021-06-09] MEDS ORDERED: PT OWN MED DRAWER 7, Y5N ONE (08:38)
[2021-06-09] MEDS: ARIPiprazole 2 MG TABLET PO SCH (09:39)
[2021-06-09] MEDS: NICOTINE 10 MG CARTRIDGE (INHALER) IH PRN (09:39)
[2021-06-09] MEDS: PRENATAL VITAMINS W/ FOLIC ACID TABLET (FP) PO SCH (09:39)
[2021-06-09] MEDS: NICOTINE 7 MG/24 HOURS TOPICAL PATCH TD SCH (09:39)
[2021-06-09] MEDS: MELATONIN 5 MG TABLETS PO SCH (21:35)
[2021-06-09] MEDS: THIAMINE HCL 100 MG TABLET (FP) PO SCH (21:36)
[2021-06-10] MEDS ORDERED: methaDONE HCL 40 MG DISPERSABLE TABLET ONE (03:46)
[2021-06-10] MEDS ORDERED: methaDONE HCL 10 MG TABLET ONE (03:46)
[2021-06-10] MEDS: methaDONE 40 MG, methaDONE 20 MG PO SCH (07:11)
[2021-06-10] MEDS: ARIPiprazole 2 MG TABLET PO SCH (09:37)
[2021-06-10] MEDS: NICOTINE 7 MG/24 HOURS TOPICAL PATCH TD SCH (09:37)
[2021-06-10] MEDS: PRENATAL VITAMINS W/ FOLIC ACID TABLET (FP) PO SCH (09:37)
[2021-06-10] MEDS: MELATONIN 5 MG TABLETS PO SCH ×2 (21:19→23:34)
[2021-06-10] MEDS: THIAMINE HCL 100 MG TABLET (FP) PO SCH (21:19)
[2021-06-11] MEDS ORDERED: methaDONE HCL 40 MG DISPERSABLE TABLET ONE (02:42)
[2021-06-11] MEDS ORDERED: methaDONE HCL 10 MG TABLET ONE (02:42)
[2021-06-11] MEDS: methaDONE 40 MG, methaDONE 20 MG PO SCH (06:40)
[2021-06-11] MEDS ORDERED: PT OWN MED DRAWER 7, Y5N ONE (08:30)
[2021-06-11] MEDS: ARIPiprazole 2 MG TABLET PO SCH (09:46)
[2021-06-11] MEDS: NICOTINE 7 MG/24 HOURS TOPICAL PATCH TD SCH (09:46)
[2021-06-11] MEDS: PRENATAL VITAMINS W/ FOLIC ACID TABLET (FP) PO SCH (09:46)
[2021-06-11] MEDS: MELATONIN 5 MG TABLETS PO SCH (23:08)
[2021-06-11] MEDS: THIAMINE HCL 100 MG TABLET (FP) PO SCH (23:08)
[2021-06-12] MEDS ORDERED: methaDONE HCL 40 MG DISPERSABLE TABLET ONE (03:25)
[2021-06-12] MEDS ORDERED: methaDONE HCL 10 MG TABLET ONE (03:25)
[2021-06-12 06:43] VITALS: BP 119/81; PULSE 67; TEMP 97.1
[2021-06-12] MEDS: methaDONE 40 MG, methaDONE 20 MG PO SCH (06:54)
[2021-06-12] MEDS ORDERED: PT OWN MED DRAWER 7, Y5N ONE (08:48)
[2021-06-12] MEDS: ARIPiprazole 2 MG TABLET PO SCH (09:31)
[2021-06-12] MEDS: NICOTINE 7 MG/24 HOURS TOPICAL PATCH TD SCH (09:31)
[2021-06-12] MEDS: PRENATAL VITAMINS W/ FOLIC ACID TABLET (FP) PO SCH (09:31)
[2021-06-12] MEDS: NICOTINE 10 MG CARTRIDGE (INHALER) IH PRN (09:31)
== END 2021-06-12 09:31 | disposition home or self-care (01) | DRG 772 ==
LOC: YASAS 11:41 → Y3E 11:42
PROVIDERS: ADMIT Allergy & Immunology; ATTEND Allergy & Immunology
PROC: HZ42ZZZ Group Counseling for Substance Abuse Treatment, Cognitive-Behavioral (ICD-10-PCS; principal; 2021-06-02)
DX: F11.20 Opioid dependence, uncomplicated (principal); F10.20 Alcohol dependence, uncomplicated; F13.20 Sedative, hypnotic or anxiolytic dependence, uncomplicated; F12.20 Cannabis dependence, uncomplicated; F17.210 Nicotine dependence, cigarettes, uncomplicated; F19.24 Other psychoactive substance dependence with psychoactive substance-induced mood disorder; F32.A Depression, unspecified; F43.10 Post-traumatic stress disorder, unspecified; B18.2 Chronic viral hepatitis C; Z62.810 Personal history of physical and sexual abuse in childhood; Z91.018 Allergy to other foods; Z56.0 Unemployment, unspecified
CPT/HCPCS: 36415; 82962; 87389

== ENCOUNTER 2021-10-14 11:31 | Inpatient (IN) | payer OTHER ==
[2021-10-14 12:18] VITALS: BMI 25.0
[2021-10-14] MEDS ORDERED: MENTHOL/PHENOL 1 EACH UD MM PRN (12:49)
[2021-10-14] MEDS ORDERED: METHOCARBAMOL 500 MG TABLET PO PRN (12:49)
[2021-10-14] MEDS ORDERED: ACETAMINOPHEN 325 MG TABLET (FP) PO PRN ×2 (12:49)
[2021-10-14] MEDS ORDERED: MAGNESIUM CITRATE 300 ML BOTTLE PO PRN (12:49)
[2021-10-14] MEDS ORDERED: hydrOXYzine PAMOATE 25 MG CAPSULE (FP) PO PRN (12:49)
[2021-10-14] MEDS ORDERED: MAG HYDROX/AL HYDROX/SIMETH 30 ML UNIT-DOSE CUP PO PRN (12:49)
[2021-10-14] MEDS ORDERED: BISMUTH SUBSALICYLATE 524 MG/30 ML PO PRN (12:49)
[2021-10-14] MEDS ORDERED: ONDANSETRON *ODT* 4 MG TABLET SL PRN (12:49)
[2021-10-14] MEDS ORDERED: MELATONIN 5 MG TABLETS PO PRN (12:49)
[2021-10-14] MEDS ORDERED: IBUPROFEN 400 MG TABLET (FP) PO PRN (12:49)
[2021-10-14] MEDS ORDERED: MAGNESIUM HYDROX 2400MG/30ML ORAL SUSPENSION 30 ML CUP PO PRN (12:49)
[2021-10-14] MEDS ORDERED: LOPERAMIDE HCL 2 MG CAPSULE PO PRN (12:49)
[2021-10-14] MEDS ORDERED: diazePAM 5 MG TABLET PO PRN (12:51)
[2021-10-14] MEDS ORDERED: THIAMINE HCL 100 MG TABLET (FP) PO SCH (22:00)
[2021-10-15] MEDS ORDERED: methaDONE HCL 10 MG TABLET ONE (04:41)
[2021-10-15] MEDS ORDERED: methaDONE HCL 40 MG DISPERSABLE TABLET ONE (04:42)
[2021-10-15] MEDS ORDERED: methaDONE HCL 40 MG DISPERSABLE TABLET PO SCH (06:00)
[2021-10-15] MEDS ORDERED: methaDONE 40 MG, methaDONE 30 MG PO SCH (06:00)
[2021-10-15 06:35] VITALS: PULSE 60
[2021-10-15 08:26] VITALS: BP 110/62; TEMP 98.3
[2021-10-15] MEDS ORDERED: PRENATAL VITAMINS W/ FOLIC ACID TABLET (FP) PO SCH (10:00)
[2021-10-15 12:16] LABS: HEMOGLOBIN 13.3 GM/dL (11.7-16.9); MCH 29.4 pg (25.7-33.7); MCHC 34.2 g/dl (32.0-35.9); MEAN CELL VOLUME 86.1 fl (80-96); MEAN PLT VOLUME 8.3 fl (7.5-11.1); PLATELET COUNT 168 10^3/uL (134-434); RBC 4.53 M/mm3 (4.00-5.60); RDW 13.2 % (11.9-15.9); WHITE BLOOD COUNT 4.9 K/mm3 (4.0-10.0)
[2021-10-15 12:19] LABS: CALCIUM 8.9 mg/dL (8.5-10.1)
[2021-10-15 12:20] LABS: ALBUMIN 3.3 g/dl (3.4-5.0); BLOOD UREA NITROGEN 12.9 mg/dL (7-18)
[2021-10-15 12:23] LABS: CREATININE 0.7 mg/dL (0.55-1.3)
[2021-10-15 12:25] LABS: BILIRUBIN,TOTAL 0.6 mg/dL (0.2-1); TOT PROT 6.2 g/dl (6.4-8.2)
[2021-10-16 00:06] LABS: SARS-CoV-2 NAA Not Detected (Not Detected)
[2021-10-17 10:09] LABS: SARS-CoV-2 NAA Not Detected (Not Detected)
== END 2021-10-15 13:15 | disposition home or self-care (01) | DRG 773 ==
LOC: YASAS 11:31 → Y3N 13:18
PROVIDERS: ADMIT Allergy & Immunology; ATTEND Allergy & Immunology
PROC: HZ2ZZZZ Detoxification Services for Substance Abuse Treatment (ICD-10-PCS; principal; 2021-10-14)
DX: F10.230 Alcohol dependence with withdrawal, uncomplicated (principal); F11.20 Opioid dependence, uncomplicated; F13.20 Sedative, hypnotic or anxiolytic dependence, uncomplicated; F12.20 Cannabis dependence, uncomplicated; F17.210 Nicotine dependence, cigarettes, uncomplicated; F31.9 Bipolar disorder, unspecified; F19.24 Other psychoactive substance dependence with psychoactive substance-induced mood disorder; F43.10 Post-traumatic stress disorder, unspecified; B18.2 Chronic viral hepatitis C; Z62.810 Personal history of physical and sexual abuse in childhood; Z91.14 Patient's other noncompliance with medication regimen; Z91.018 Allergy to other foods
CPT/HCPCS: 36415; 80053; 85027; 86780; 87811; C9803-CS; U0003; U0005

== ENCOUNTER 2022-06-07 11:58 | Inpatient (IN) | payer OTHER ==
[2022-06-07 13:58] VITALS: BMI 25.0
[2022-06-07] MEDS ORDERED: MAGNESIUM HYDROX 2400MG/30ML ORAL SUSPENSION 30 ML CUP PO PRN (16:14)
[2022-06-07] MEDS ORDERED: guaiFENesin 200 MG/10 ML 10 ML UNIT-DOSE CUPS PO PRN (16:14)
[2022-06-07] MEDS ORDERED: NICOTINE 10 MG CARTRIDGE (INHALER) IH PRN (16:14)
[2022-06-07] MEDS ORDERED: IBUPROFEN 400 MG TABLET (FP) PO PRN (16:14)
[2022-06-07] MEDS ORDERED: hydrOXYzine PAMOATE 25 MG CAPSULE (FP) PO PRN (16:14)
[2022-06-07] MEDS ORDERED: P-EPHED 60MG/TRIPROLIDI 2.5MG TABLET PO PRN (16:14)
[2022-06-07] MEDS ORDERED: MAG HYDROX/AL HYDROX/SIMETH 30 ML UNIT-DOSE CUP PO PRN (16:14)
[2022-06-07] MEDS ORDERED: MAGNESIUM CITRATE 300 ML BOTTLE PO PRN (16:14)
[2022-06-07] MEDS ORDERED: LOPERAMIDE HCL 2 MG CAPSULE PO PRN (16:14)
[2022-06-07] MEDS ORDERED: ACETAMINOPHEN 325 MG TABLET (FP) PO PRN (16:14)
[2022-06-07] MEDS: NICOTINE 14 MG/24 HOURS TOPICAL PATCH TD SCH (19:38)
[2022-06-07] MEDS: NICOTINE 7 MG/24 HOURS TOPICAL PATCH TD SCH (19:38)
[2022-06-07] MEDS: PRENATAL VITAMINS W/ FOLIC ACID TABLET (FP) PO SCH (20:26)
[2022-06-07] MEDS: MELATONIN 5 MG TABLETS PO SCH (22:12)
[2022-06-07] MEDS: THIAMINE HCL 100 MG TABLET (FP) PO SCH (22:12)
[2022-06-08 05:29] VITALS: TEMP 97.5
[2022-06-08] MEDS ORDERED: methaDONE 40 MG, methaDONE 10 MG PO SCH (08:15)
[2022-06-08] MEDS ORDERED: methaDONE HCL 10 MG TABLET PO SCH (08:15)
[2022-06-08] MEDS: methaDONE 40 MG, methaDONE 10 MG PO SCH (09:27)
[2022-06-08] MEDS: NICOTINE 14 MG/24 HOURS TOPICAL PATCH TD SCH (11:05)
[2022-06-08] MEDS: PRENATAL VITAMINS W/ FOLIC ACID TABLET (FP) PO SCH (11:05)
[2022-06-08] MEDS: NICOTINE 7 MG/24 HOURS TOPICAL PATCH TD SCH (11:06)
[2022-06-08 11:46] LABS: HEMATOCRIT 44.2 % (35.4-49); HEMOGLOBIN 14.7 GM/dL (11.7-16.9); MCH 28.3 pg (25.7-33.7); MCHC 33.2 g/dl (32.0-35.9); MEAN CELL VOLUME 85.3 fl (80-96); MEAN PLT VOLUME 8.3 fl (7.5-11.1); PLATELET COUNT 226 10^3/uL (134-434); RBC 5.18 M/mm3 (4.00-5.60); RDW 14.1 % (11.9-15.9)
[2022-06-08 12:30] LABS: CALCIUM 9.6 mg/dL (8.5-10.1)
[2022-06-08 12:31] LABS: ALBUMIN 3.8 g/dl (3.4-5.0); BLOOD UREA NITROGEN 11.1 mg/dL (7-18)
[2022-06-08 12:34] LABS: CREATININE 0.8 mg/dL (0.55-1.3)
[2022-06-08 12:35] LABS: BILIRUBIN,TOTAL 0.8 mg/dL (0.2-1); TOT PROT 7.1 g/dl (6.4-8.2)
[2022-06-08 13:05] VITALS: RESP 18
[2022-06-08 16:07] LABS: SYPHILIS W/ RPR CONF NON-REACTIVE (NONREACTIVE)
[2022-06-08] MEDS ORDERED: MIRTAZAPINE 15 MG TABLET (FP) PO SCH (22:00)
[2022-06-08] MEDS: THIAMINE HCL 100 MG TABLET (FP) PO SCH (22:18)
[2022-06-08] MEDS: MELATONIN 5 MG TABLETS PO SCH (22:18)
[2022-06-09] MEDS: methaDONE 40 MG, methaDONE 10 MG PO SCH (06:51)
[2022-06-09 07:39] VITALS: BP 118/75; PULSE 53
[2022-06-09] MEDS: NICOTINE 7 MG/24 HOURS TOPICAL PATCH TD SCH (10:35)
[2022-06-09] MEDS: NICOTINE 14 MG/24 HOURS TOPICAL PATCH TD SCH (10:35)
[2022-06-09] MEDS: PRENATAL VITAMINS W/ FOLIC ACID TABLET (FP) PO SCH (10:35)
== END 2022-06-09 13:35 | disposition left against medical advice (07) | DRG 770 ==
LOC: YASAS 11:58 → Y3W 06-08 09:17
PROVIDERS: ADMIT Allergy & Immunology; ATTEND Psychiatry & Neurology Pain Medicine
PROC: HZ42ZZZ Group Counseling for Substance Abuse Treatment, Cognitive-Behavioral (ICD-10-PCS; principal; 2022-06-08)
DX: F11.20 Opioid dependence, uncomplicated (principal); F14.20 Cocaine dependence, uncomplicated; F13.20 Sedative, hypnotic or anxiolytic dependence, uncomplicated; F12.20 Cannabis dependence, uncomplicated; F17.210 Nicotine dependence, cigarettes, uncomplicated; F31.9 Bipolar disorder, unspecified; F19.24 Other psychoactive substance dependence with psychoactive substance-induced mood disorder; F43.10 Post-traumatic stress disorder, unspecified; G47.00 Insomnia, unspecified; B18.2 Chronic viral hepatitis C; Z91.199 Patient's noncompliance with other medical treatment and regimen due to unspecified reason
CPT/HCPCS: 36415; 80053; 85027; 86780; 86803; C9803-CS; U0003; U0005